=== PATIENT | male | born 1960 | race Caucasian/White ===

== ENCOUNTER 2024-12-24 01:57 | Inpatient (IN) | payer BC ==
[2024-12-24] VITALS (25 sets, daily range): BP systolic 121–165; BP diastolic 58–137
[~2024-12-24] VITALS: Ht 170.2 cm; Wt 75.8 kg
[~2024-12-24 01:57] MED LIST: AMOCLA875 PO; ATOR80 PO; Aspir 8181 MG PO; CHLO10 PO; CLOP75 PO; CRUTCH4 USE; HYDACE5 PO; Hair, Skin & N1 EACH PO; METO25ER PO; NAPR500 PO; OMEP20ER PO; OXYACE5T PO; TRAM50 PO
[2024-12-24] MEDS ORDERED: Heparin Sodium 5000 Units/ML 1ML MDV IV ONE (02:10)
[2024-12-24] MEDS ORDERED: Ondansetron HCl 2 MG / ML 2ML Vial IV ONE (02:10)
[2024-12-24] MEDS ORDERED: Aspirin 325 MG Tab PO ONE (02:10)
[2024-12-24] MEDS ORDERED: NS 1,000 ML IV SCH (02:10)
[2024-12-24] MEDS ORDERED: Nitroglycerin/D5W 250 ML IV SCH (02:15)
[2024-12-24] MEDS ORDERED: FentaNYL Citrate 50 MCG/ML 2 ML Injection IV PRN (02:20)
[2024-12-24 02:31] LABS: BASOPHILS ABSOLUTE AUTO 0.05 K/mm3 (0.00-0.23); BASOPHILS PERCENT AUTO 1 % (0-2); EOSINOPHILS PERCENT AUTO 5 % (0-6); Hematocrit 47.2 % (37.0-53.0); Hemoglobin 16.7 g/dL (13.5-17.5); IMMATURE GRAN ABSOLUTE AUTO 0.02 K/mm3 (0.00-0.10); IMMATURE GRAN PERCENT AUTO 0 % (0-1); LYMPHOCYTES PERCENT AUTO 42 % (21-46); MONOCYTES ABSOLUTE AUTO 0.38 K/mm3 (0.16-1.47); MONOCYTES PERCENT AUTO 6 % (4-13); Mean Corpuscular HGB 31.5 pg (26.0-34.0); Mean Corpuscular HGB Conc 35.4 g/dL (31.5-36.5); Mean Corpuscular Volume 89 fL (80-100); Mean Platelet Volume 10.4 fL (9.1-12.4); NEUTROPHILS ABSOLUTE AUTO 2.66 K/mm3 (1.96-9.15); NEUTROPHILS PERCENT AUTO 45 % (41-73); Platelet Count 181 K/mm3 (150-400); RDW Coefficient Variation 13.2 % (11.7-14.2); RDW Standard Deviation 42.9 fL (35.1-46.3); Red Blood Cell Count 5.31 M/mm3 (4.30-5.90); White Blood Cell Count 5.91 K/mm3 (4.00-11.30)
[2024-12-24] MEDS ORDERED: Verapamil HCL 2.5 MG/ML 2ML Injection ONE (02:34)
[2024-12-24] MEDS ORDERED: Heparin Sodium 1000 Units/ML 10ML MDV ONE (02:34)
[2024-12-24] MEDS ORDERED: NS 250 ML IV ONE (02:35)
[2024-12-24] MEDS ORDERED: NS 1,000 ML IV ONE ×2 (02:35→02:40)
[2024-12-24] MEDS ORDERED: Nitroglycerin 2 MG/20 ML BTL ONE (02:35)
[2024-12-24] MEDS ORDERED: FentaNYL Citrate 50 MCG/ML 2 ML Injection ONE (02:40)
[2024-12-24] MEDS ORDERED: Midazolam HCl 1MG / ML 2ML Vial ONE (02:40)
[2024-12-24] MEDS ORDERED: Atropine Sulfate 0.1 MG/ML 10ML SYR ONE (02:41)
[2024-12-24] MEDS ORDERED: Phenylephrine HCl 100 MCG/ML-NS 10MLSYR (1MG/10ML) ONE (02:41)
[2024-12-24] MEDS ORDERED: NS 0 ML IV ONE (02:43)
[2024-12-24] MEDS ORDERED: Amiodarone HCl 50 MG / ML 3 ML Amp ONE (02:43)
[2024-12-24 02:48] LABS: Anti-Xa UFH, PHA Monitoring <0.10 IU/mL; International Normalized Ratio 0.97; Prothrombin Time Results 10.4 Sec (9.7-11.5)
[2024-12-24] MEDS ORDERED: Dose Adjust by Pharmacy XX STA (02:48)
[2024-12-24] MEDS ORDERED: Heparin Sodium,Porcine/0.5 NS 500 ML IV SCH (02:50)
[2024-12-24 02:54] LABS: Magnesium, Blood 1.8 mg/dL (1.6-2.4)
[2024-12-24 02:56] LABS: Albumin, Blood 4.1 g/dL (3.4-5.0); Alk Phos 91 U/L (50-136); Anion Gap 13 mmol/L (3-11); Aspartate Aminotrans (AST/SGOT 34 U/L (12-37); Bilirubin, Total 0.4 mg/dL (0.1-1.0); Blood Urea Nitrogen 9 mg/dL (8-24); Bun/Creatinine Ratio 11.4 (12.0-20.0); CO2, Blood 23 mmol/L (21-32); Calcium, Blood 9.2 mg/dL (8.5-10.1); Chloride, Blood 105 mmol/L (98-108); Creatinine, Blood 0.79 mg/dL (0.60-1.20); Glomerular Filtration Rate 100 (60-); Glucose, Blood 140 mg/dL (70-99); Potassium, Blood 3.5 mmol/L (3.5-5.5); Sodium, Blood 137 mmol/L (136-145); Total Protein, Blood 8.1 g/dL (6.4-8.2)
[2024-12-24] MEDS ORDERED: Tirofiban HCL Monohydrate 3.75 MG/15 ML Vial ONE (02:58)
[2024-12-24] MEDS ORDERED: Clopidogrel Bisulfate 300 MG TABLET ONE (03:18)
[2024-12-24] MEDS ORDERED: Ondansetron HCl 2 MG / ML 2ML Vial IV PRN (03:55)
[2024-12-24 04:02] LABS: Triglycerides 1034 mg/dL (30-160)
[2024-12-24 04:04] LABS: Cholesterol 324 mg/dL (50-200)
[2024-12-24 04:05] LABS: HDL Cholesterol 70 mg/dL (>39)
[2024-12-24 04:06] LABS: CHOL/HDL RATIO 4.6; Low Density Lipoprotein Chol 212 mg/dL (0-110)
[2024-12-24 04:09] LABS: Alanine Aminotransfer (ALT/SGP 44 U/L (12-78); Very Low Density Lipoprot Chol 216 mg/dL (6-32)
[2024-12-24 04:25] LABS: BASOPHILS ABSOLUTE AUTO 0.04 K/mm3 (0.00-0.23); BASOPHILS PERCENT AUTO 1 % (0-2); EOSINOPHILS ABSOLUTE AUTO 0.22 K/mm3 (0.00-0.68); EOSINOPHILS PERCENT AUTO 3 % (0-6); Hematocrit 41.4 % (37.0-53.0); Hemoglobin 14.6 g/dL (13.5-17.5); IMMATURE GRAN ABSOLUTE AUTO 0.04 K/mm3 (0.00-0.10); IMMATURE GRAN PERCENT AUTO 1 % (0-1); LYMPHOCYTES ABSOLUTE AUTO 1.15 K/mm3 (0.84-5.20); LYMPHOCYTES PERCENT AUTO 15 % (21-46); MONOCYTES ABSOLUTE AUTO 0.34 K/mm3 (0.16-1.47); MONOCYTES PERCENT AUTO 5 % (4-13); Mean Corpuscular HGB 31.8 pg (26.0-34.0); Mean Corpuscular HGB Conc 35.3 g/dL (31.5-36.5); Mean Corpuscular Volume 90 fL (80-100); Mean Platelet Volume 10.7 fL (9.1-12.4); NEUTROPHILS ABSOLUTE AUTO 5.79 K/mm3 (1.96-9.15); NEUTROPHILS PERCENT AUTO 76 % (41-73); Platelet Count 147 K/mm3 (150-400); RDW Coefficient Variation 13.2 % (11.7-14.2); RDW Standard Deviation 43.2 fL (35.1-46.3); Red Blood Cell Count 4.59 M/mm3 (4.30-5.90); White Blood Cell Count 7.58 K/mm3 (4.00-11.30)
[2024-12-24 04:55] LABS: Albumin, Blood 3.8 g/dL (3.4-5.0); Albumin/Globulin Ratio 1.2 (0.8-1.8); Bilirubin, Total 0.4 mg/dL (0.1-1.0); Bun/Creatinine Ratio 13.7 (12.0-20.0); Calcium, Blood 9.1 mg/dL (8.5-10.1); Creatinine, Blood 0.66 mg/dL (0.60-1.20); Globulin, Blood 3.3 g/dL (2.2-4.0); Potassium, Blood 3.5 mmol/L (3.5-5.5); Total Protein, Blood 7.1 g/dL (6.4-8.2)
[2024-12-24] MEDS ORDERED: Amiodarone HCl 50 MG / ML 3 ML Amp IV ONE (04:56)
--- NOTE | 2024-12-24 05:21 | NUR ---
PATIENT ARRIVAL TO ICU: PATIENT ARRIVED TO ICU VIA BED, BEING BROUGHT IN BY THE CUT OFF WORKER TEAM. REPORT RECIEVED AT BEDSIDE FROM JYOTI CUNHA. PATIENT WAS AT HOME WHEN HE STARTED EXPERIENCING SUBSTERNAL CP WITHOUT RADIATION AND SOME NAUSEA. EMS ARRIVED AND ASSESSED THE PATIENT. PATIENT DID NOT GO WITH EMS, HE WAS DRIVEN TO THE ED BY HIS IN THEIR PERSONAL VEHICLE. ONCE IN THE ED, IT WAS DETERMINED THAT THE PATIENT WAS HAVING A STEMI. PATIENT HAD A WITNESSED CARDIAC EVENT (TORSADES) AND REQUIRED DEFIB X3. SENT TO THE CUT OFF WORKER FOR A STENT PRIOR TO BEING ADMITTED TO THE ICU. UPON ARRIVAL TO ICU PATIENT IS ALERT AND ORIENTED X4. NEUROMUSCULARY INTACT X4. NO COMPLAINTS OF CP, SOA OR PAIN. -JVD. ON RA, WITH EQUAL RISE AND FALL OF THE CHEST, CLEAR LS. INTACT COUGH AND GAG. MONITOR SHOWS NSR WITH OCCASSIONAL BIGEMINY PVC'S. BRISK CAP REFILL ASIDE FROM RIGHT HAND DUE TO TR BAND. 2/2 STRONG PULSES. SKIN IS WARM AND DRY. BP IS WNL. NO EDEMA. ABDOMEN IS SNT WITH ACTIVE BT'S. ROUNDED BUT NOT DISTENDED. VOIDS WITHOUT ISSUE. SKIN IS INTACT AND BLANCHABLE. PATIENT IS WEARING A TR BAND ON THE RIGHT WRIST. SEE DOCUMENTATION FOR TR BAND PRESSURE RELEASE. PATIENT HAS TWO PATENT PIV'S. CURRENTLY ON IV AMIO. PATIENT IS NOT IN THE MOOD FOR QUESTIONS AT THIS TIME AND HAS REQUESTED THAT NURSING STAFF ALLOW HIM TO SLEEP AND THEN HE WILL RESUME ANSWERING ADMISSION QUESTIONS IN THE MORNING. WAS AT BEDSIDE WHEN HE WAS ADMITTED BUT LEFT SHORTLY AFTER WITH PATIENT BELONGINGS, LEAVING THE PATIENTS CELL PHONE WITH HIM. NO COMPLICATIONS OR EVENTS TO REPORT.
[2024-12-24] MEDS ORDERED: Potassium Chloride 20 MEQ TabCR PO ONE (08:00)
--- NOTE | 2024-12-24 08:08 | NUR ---
AM NOTE... ASSUMED CARE OF PT AT APPROX 0700. PATIENT A&OX4 AND ABLE TO MAKE NEEDS KNOWN. PATIENT RESTING, BUT WAKES TO VOICES. HR NORMAL SINUS IN THE 60'S-70'S. BP STABLE WITH MAPS >65. NO COMPLAINTS OF CHEST PAIN OR PRESSURE. AMIODARONE INFUSING @ 1MG/MIN. SITE AT R RADIAL WITHOUT BRUISING, BLEEDING OR HEMATOMA. O2 SATS >95% ON RA. L/S CLEAR THROUGHOUT. PT USING URINAL IND TO VOID.
[2024-12-24] MEDS ORDERED: Aspirin 81 MG Chew PO SCH (09:00)
[2024-12-24] MEDS ORDERED: buPROPion HCL 150 MG TAB.SR.12H PO SCH (09:00)
[2024-12-24] MEDS ORDERED: Clopidogrel Bisulfate 75 MG Tab PO SCH (09:00)
[2024-12-24] MEDS ORDERED: Losartan Potassium 25 MG Tab PO SCH (09:00)
[2024-12-24] MEDS ORDERED: Varenicline Tartrate 1 MG Tablet PO SCH ×2 (09:00)
[2024-12-24] MEDS ORDERED: Metoprolol Tartrate 25 MG Tab PO SCH (09:00)
--- NOTE | 2024-12-24 13:23 | NUR ---
PT UPDATE.... PT'S CAME TO THE DESK SAYING THE PT WAS HAVING INCREASED CHEST PRESSURE/HEAVINESS THAT HAS INCREASED OVER THE PAST "HOUR OR SO" PER THE PT THE PRESSURE/HEAVINESS IS CURRENTLY A 4/10. THE PROVIDER WAS CALLED, ORDERS FOR AN EKG. NO MAJOR CHANGES NOTED ON THE EKG. NO CHANGES NOTED ON TELE. OTHER VS STABLE.
[2024-12-24] MEDS ORDERED: BREZTRI AEROS10.7 GM INH (13:36)
[2024-12-24] MEDS ORDERED: Mometasone/Formoterol MDI 200/5 mcg 13 GM INH SCH (14:10)
[2024-12-24] MEDS ORDERED: Ipratropium Bromide INH 0.02% 0.5 mg/2.5ML Vial INH SCH ×2 (14:10→14:45)
[2024-12-24] MEDS ORDERED: ChlordiazePOXIDE 25 MG Cap PO PRN (15:20)
[2024-12-24] MEDS ORDERED: Folic Acid 1 MG TAB PO SCH (16:00)
[2024-12-24] MEDS ORDERED: Thiamine HCl 100 MG Tab PO SCH (16:00)
--- NOTE | 2024-12-24 17:24 | NUR ---
SHIFT SUMMARY... PATIENT A&OX4 AND ABLE TO MAKE NEEDS KNOWN. HR NORMAL SINUS IN THE 60'S-70'S. BP STABLE WITH MAPS >65. R RADIAL SITE STABLE WITH ARM BOARD IN PLACE. NO COMPLAINTS OF CHEST PAIN. PATIENT STATES HE HAS SOME CHEST PRESSURE BUT NOTHING NEW, PROVIDER AWARE. SATS >95% ON RA. L/S CLEAR THROUGHOUT. PATIENT IND TO USE TOILET. BM X2 THIS SHIFT. PIV TO THE LEFT UPPER ARM AND RIGHT AC SALINE LOCKED. AT BEDSIDE UPDATED ON PLAN OF CARE.
--- NOTE | 2024-12-24 20:00 | NUR ---
ASSESSMENT/ASSUMED CARE PT RESTING QUIETLY WITH EAR PLUGS IN. AWAKENS EASILY TO TOUCH. A&O X4. MOVING AND TURNING SELF IN BED. REPORTS CHEST PRESSURE TO MID CHEST. STATES,"IT IS BETTER THAN WHEN DR SIMONS CAME INTO SEE ME. HE SAID IT WAS FROM ALL THE WORK AND STRETCHING HE DID TO MY HEART". EXPLAINED IF THE PAIN/PRESSURE CHANGED OR GOES UP INTO HIS JAW OR ARM TO CALL ME FLIP. LUNGS CLEAR BUT DECREASED IN THE BASES. PLACED ON O2 AT 4 LITER VIA NC DUE TO SPO2 DOWN TO 85% ON ROOMAIR WHILE SLEEPING. SPO2 UP TO 98% WITH O2 AT 4 LITERS. HEART RATE REGULAR IN THE 70-80'S. BP STABLE. PT MED WITH HS MEDS PER EMAR. NO EDEMA NOTED. BT+ ABD SOFT AND NONTENDER. DENIES N/V. RIGHT WRIST TR SITE WITH BRUISING. NO BLEEDING OR HEMATOMA NOTED. ARM BOARD ON. EXPLAINED TO PT TO NOT USE ARM AND TO KEEP ARM BOARD ON. IV TO LEFT UPPER ARM SALINE LOCKED SITE CLEAR, ABLE TO DRAW BLOOD AND FLUSH WITHOUT DIFFICULTY. IV RIGHT AC SALINE LOCKED. SITE CLEAR. ABLE TO FLUSH WITHOUT DIFFICULTY. PT UP TO BATHROOM TO VOID THAN BACK TO BED.
[2024-12-24] MEDS ORDERED: Atorvastatin 40 MG Tab PO SCH (21:00)
--- NOTE | 2024-12-25 01:50 | NUR ---
PT SLEEPING. SPO2 97-98% ON 4 LITERS O2 VIA NC. DECREASED O2 TO 2 LITERS VIA NC.
[2024-12-25 03:02] VITALS: BP 129/83
[2024-12-25 03:32] LABS: BASOPHILS ABSOLUTE AUTO 0.05 K/mm3 (0.00-0.23); BASOPHILS PERCENT AUTO 0 % (0-2); EOSINOPHILS ABSOLUTE AUTO 0.17 K/mm3 (0.00-0.68); EOSINOPHILS PERCENT AUTO 2 % (0-6); Hematocrit 41.3 % (37.0-53.0); Hemoglobin 14.1 g/dL (13.5-17.5); IMMATURE GRAN ABSOLUTE AUTO 0.08 K/mm3 (0.00-0.10); IMMATURE GRAN PERCENT AUTO 1 % (0-1); LYMPHOCYTES ABSOLUTE AUTO 1.61 K/mm3 (0.84-5.20); LYMPHOCYTES PERCENT AUTO 14 % (21-46); MONOCYTES ABSOLUTE AUTO 0.63 K/mm3 (0.16-1.47); MONOCYTES PERCENT AUTO 6 % (4-13); Mean Corpuscular HGB 30.9 pg (26.0-34.0); Mean Corpuscular HGB Conc 34.1 g/dL (31.5-36.5); Mean Corpuscular Volume 91 fL (80-100); Mean Platelet Volume 10.7 fL (9.1-12.4); NEUTROPHILS ABSOLUTE AUTO 8.71 K/mm3 (1.96-9.15); NEUTROPHILS PERCENT AUTO 78 % (41-73); Platelet Count 156 K/mm3 (150-400); RDW Coefficient Variation 13.1 % (11.7-14.2); RDW Standard Deviation 43.5 fL (35.1-46.3); Red Blood Cell Count 4.56 M/mm3 (4.30-5.90); White Blood Cell Count 11.25 K/mm3 (4.00-11.30)
[2024-12-25 03:56] LABS: Albumin, Blood 3.7 g/dL (3.4-5.0); Albumin/Globulin Ratio 1.2 (0.8-1.8); Bilirubin, Total 0.9 mg/dL (0.1-1.0); Bun/Creatinine Ratio 9.4 (12.0-20.0); Calcium, Blood 8.9 mg/dL (8.5-10.1); Creatinine, Blood 0.74 mg/dL (0.60-1.20); Globulin, Blood 3.2 g/dL (2.2-4.0); Potassium, Blood 3.8 mmol/L (3.5-5.5); Total Protein, Blood 6.9 g/dL (6.4-8.2)
[2024-12-25] MEDS ORDERED: Enoxaparin 40 MG/0.4 ML SYR SC SCH (05:00)
--- NOTE | 2024-12-25 05:50 | NUR ---
SHIFT SUMMARY PT RESTING QUIETLY. VSS. RIGHT WRIST TR SITE STABLE. DENIES CHEST PAIN OR PRESSURE AT THIS TIME. POSSIBLE DISCHARGE TO HOME TODAY. REPORT TO ON COMING NURSE
[2024-12-25 07:47] VITALS: BP 130/74
[2024-12-25] MEDS ORDERED: BUPR150ER PO (09:50)
[2024-12-25] MEDS ORDERED: LOSA25 PO (09:50)
[2024-12-25] MEDS ORDERED: PANT20 PO (09:51)
[2024-12-25] MEDS ORDERED: Chantix1 MG PO (09:52)
--- NOTE | 2024-12-25 10:45 | NUR ---
PT DISCHARGED AT 1025 TO HIS HOME. PICKED HIM UP IN A PRIVATED VEHICLE. NEURO: ALERT AND ORIENTED X4 TODAY. ABLE TO MAKE HIS OWN NEEDS KNOWN. CARDIAC: SBP 130-140S, HR 80-90S. SR. DENIED ANY CHEST PAIN OR PRESSURE TR BAND SITE C/D/I, SOME ECCYMOSIS AROUND ACCESS SITE BUT DENIED ANY CHANGES IN SENSATION OR PAIN. PULM: LUNGS CLEAR TO AUSCULATION, NO COUGH OR SOB. GI: ABDO SOFT/NON TENDER, PASSING FLATUS WITH NORMOACTIVE BOWEL TONES. : URINATING PER HIS NORMAL, UP TO TOLIET INDEPENDENTLY INDEPENDENT IN ALL ADLS. EXTENSIVE EDUCATION PROVIDED WITH PRINTED INSTRUCTIONS. PT ASKING QUESTIONS AND ENGAGED.
[2024-12-25] MEDS ORDERED: Ipratropium Bromide INH 0.02% 0.5 mg/2.5ML Vial INH SCH (14:10)
== END 2024-12-25 10:25 | disposition home or self-care (01) | DRG 321 ==
LOC: ER 01:57 → ICUE 02:35 → ERHOLD 02:35 → ICUE 03:35
PROVIDERS: Emergency Medicine; Internal Medicine; ADMIT Internal Medicine
PROC: 027034Z Dilation of Coronary Artery, One Artery with Drug-eluting Intraluminal Device, Percutaneous Approach (ICD-10-PCS; principal; 2024-12-24)
PROC: 5A2204Z Restoration of Cardiac Rhythm, Single (ICD-10-PCS; 2024-12-24)
PROC: B2111ZZ Fluoroscopy of Multiple Coronary Arteries using Low Osmolar Contrast (ICD-10-PCS; 2024-12-24)
DX: I21.19 ST elevation (STEMI) myocardial infarction involving other coronary artery of inferior wall (principal); I49.01 Ventricular fibrillation; I10 Essential (primary) hypertension; E78.5 Hyperlipidemia, unspecified; F10.20 Alcohol dependence, uncomplicated; F17.210 Nicotine dependence, cigarettes, uncomplicated; Z88.8 Allergy status to other drugs, medicaments and biological substances; Z79.899 Other long term (current) drug therapy; I25.2 Old myocardial infarction; Z79.82 Long term (current) use of aspirin
CPT/HCPCS: 36415; 71045; 76937; 80053; 80061; 83605; 83735; 83880; 84484; 85025; 85347; 85520; 85610; 85730; 86850; 86900; 86901; 92941; 93005; 93010; 93454; 94640; 94664; 94762; 96374; 96375; 99152; 99153; 99285-25; A9270; C1725; C1769; C1874; C1887; C1894; C8929; C9600; G0378; J0282; J0461; J1644; J1650; J2250; J2371; J2405; J3010; J3246; J7030; J7050; J7060; Q9957; Q9967

== ENCOUNTER 2025-07-01 20:58 | Inpatient (IN) | payer BC, OTHER ==
[~2025-07-01] VITALS: Ht 172.7 cm; Wt 80.5 kg
[~2025-07-01 20:58] MED LIST changes: +BREZTRI AEROS10.7 GM INH; +BUPR150ER PO; +Chantix1 MG PO; +LOSA25 PO; +PANT20 PO
[2025-07-01] MEDS ORDERED: Amiodarone HCl 450 MG in NS 250 ML IV SCH (21:05)
[2025-07-01 21:17] LABS: pH Blood Venous 6.90 (7.34-7.37)
[2025-07-01 21:28] LABS: Hematocrit 43.4 % (37.0-53.0); Hemoglobin 14.0 g/dL (13.5-17.5); Mean Corpuscular HGB Conc 32.3 g/dL (31.5-36.5); Mean Corpuscular Volume 94 fL (80-100); NRBC ABSOLUTE 0.00 K/mm3 (0.00-0.02); NRBC Auto 0.0 /100 WBC (0.0-0.2); Platelet Count 177 K/mm3 (150-400); RDW Coefficient Variation 13.5 % (11.7-14.2); RDW Standard Deviation 46.3 fL (35.1-46.3)
[2025-07-01 21:47] LABS: Thyroid Stimulating Hormone 7.59 uIU/mL (0.360-4.800)
[2025-07-01 21:53] LABS: Alanine Aminotransfer (ALT/SGP 209.0 U/L (12-78); Albumin, Blood 3.4 g/dL (3.4-5.0); Albumin/Globulin Ratio 1.0 (0.8-1.8); Anion Gap 19.0 mmol/L (3-11); Aspartate Aminotrans (AST/SGOT 219.0 U/L (12-37); Bilirubin, Total 0.4 mg/dL (0.1-1.0); Blood Urea Nitrogen 14.0 mg/dL (8-24); CO2, Blood 19.0 mmol/L (21-32); Calcium, Blood 8.2 mg/dL (8.5-10.1); Chloride, Blood 101.0 mmol/L (98-108); Creatinine, Blood 1.05 mg/dL (0.60-1.20); Globulin, Blood 3.5 g/dL (2.2-4.0); Glucose, Blood 393.0 mg/dL (70-99); Magnesium, Blood 2.7 mg/dL (1.6-2.4); Phosphorus, Blood 8.2 mg/dL (2.5-4.9); Potassium, Blood 4.2 mmol/L (3.5-5.5); Sodium, Blood 135.0 mmol/L (136-145); Total Protein, Blood 6.9 g/dL (6.4-8.2)
[2025-07-01 21:55] LABS: BAND PERCENT MAN 10 % (0-8); BASOPHILS ABSOLUTE MAN 0.00 K/mm3 (0.00-0.23); BASOPHILS PERCENT MAN 0 % (0-2); EOSINOPHILS ABSOLUTE MAN 0.39 K/mm3 (0.00-0.68); EOSINOPHILS PERCENT MAN 2 % (0-6); LYMPHOCYTES ABSOLUTE MAN 10.98 K/mm3 (0.84-5.20); LYMPHOCYTES PERCENT MAN 55 % (21-46); MONOCYTES ABSOLUTE MAN 0.39 K/mm3 (0.16-1.47); MONOCYTES PERCENT MAN 2 % (4-13); MYELOCYTE ABSOLUTE MAN 0.19 K/mm3 (0.00-0.00); MYELOCYTE PERCENT MAN 1 % (0-0); NEUTROPHILS ABSOLUTE MAN 7.99 K/mm3 (1.96-9.15); SEG NEUTROPHILS PERCENT MAN 30 % (41-73)
[2025-07-01] MEDS ORDERED: NS 1,000 ML IV ONE (22:15)
[2025-07-01 22:26] LABS: Source, Urine Clean Catch
[2025-07-01 22:33] LABS: Bilirubin, Urine Neg (Neg); Glucose Qualitative, Urine 3+ (Neg); Ketones, Urine Neg (Neg); Leukocyte Esterase, Urine Neg (Neg); Protein, Urine 4+ (Neg); Specific Gravity, Urine 1.015 (1.003-1.022); Urobilinogen, Urine NORM (Normal)
[2025-07-01 22:34] LABS: Color, Urine Pale Yellow (P-Yellow)
[2025-07-01 22:40] LABS: Influenza A, PCR NEGATIVE (NEGATIVE); Influenza B, PCR NEGATIVE (NEGATIVE); Resp Syncytial Virus, PCR NEGATIVE (NEGATIVE); SARS-Cov-2 (COVID-19) PCR, MMC NEGATIVE (NEGATIVE)
[2025-07-01 22:41] LABS: Red Blood Cells, Urine 25-50 /hpf (0-2)
[2025-07-01] MEDS ORDERED: Dose Adjust by Pharmacy XX STA (22:47)
[2025-07-01] MEDS ORDERED: Heparin Sodium,Porcine/0.5 NS 500 ML IV SCH (22:50)
[2025-07-01 23:07] LABS: Anti-Xa UFH, PHA Monitoring <0.10 IU/mL; Prothrombin Time Results 10.9 Sec (9.7-11.5)
[2025-07-01] MEDS ORDERED: CefTRIAXone Sodium 2,000 MG in NS 100 ML IV ONE (23:10)
[2025-07-01 23:15] LABS: pH Blood Arterial 7.14 (7.35-7.45)
[2025-07-01] MEDS ORDERED: FLU VACC TS2025-26(6MOS UP)/PF 45 MCG/0.5 ML SYRINGE IM SCH (23:30)
[2025-07-01 23:45] VITALS: BP 152/100
[2025-07-02] VITALS (87 sets, daily range): BP systolic 74–157; BP diastolic 44–110
[2025-07-02] MEDS ORDERED: Midazolam HCl 1MG / ML 2ML Vial IV SCH
[2025-07-02] MEDS ORDERED: Hydrogen Peroxide 1.5 % Solution PO SCH
[2025-07-02 01:47] LABS: pH Blood Venous 7.20 (7.34-7.37)
[2025-07-02 01:51] LABS: BASOPHILS ABSOLUTE AUTO 0.11 K/mm3 (0.00-0.23); BASOPHILS PERCENT AUTO 1 % (0-2); EOSINOPHILS ABSOLUTE AUTO 0.10 K/mm3 (0.00-0.68); EOSINOPHILS PERCENT AUTO 1 % (0-6); Hematocrit 48.7 % (37.0-53.0); Hemoglobin 16.3 g/dL (13.5-17.5); IMMATURE GRAN ABSOLUTE AUTO 0.31 K/mm3 (0.00-0.10); IMMATURE GRAN PERCENT AUTO 2 % (0-1); LYMPHOCYTES ABSOLUTE AUTO 1.69 K/mm3 (0.84-5.20); LYMPHOCYTES PERCENT AUTO 9 % (21-46); MONOCYTES ABSOLUTE AUTO 1.08 K/mm3 (0.16-1.47); MONOCYTES PERCENT AUTO 6 % (4-13); Mean Corpuscular HGB Conc 33.5 g/dL (31.5-36.5); Mean Corpuscular Volume 90 fL (80-100); NEUTROPHILS ABSOLUTE AUTO 14.77 K/mm3 (1.96-9.15); NEUTROPHILS PERCENT AUTO 82 % (41-73); NRBC ABSOLUTE 0.00 K/mm3 (0.00-0.02); NRBC Auto 0.0 /100 WBC (0.0-0.2); Platelet Count 217 K/mm3 (150-400); RDW Coefficient Variation 13.6 % (11.7-14.2); RDW Standard Deviation 45.0 fL (35.1-46.3)
[2025-07-02] MEDS ORDERED: Midazolam HCL 50 MG in NS 40 ML IV PRN (01:55)
[2025-07-02 02:15] LABS: Magnesium, Blood 2.3 mg/dL (1.6-2.4)
[2025-07-02 02:19] LABS: Alanine Aminotransfer (ALT/SGP 225.0 U/L (12-78); Albumin, Blood 3.6 g/dL (3.4-5.0); Albumin/Globulin Ratio 1.1 (0.8-1.8); Anion Gap 12.0 mmol/L (3-11); Aspartate Aminotrans (AST/SGOT 294.0 U/L (12-37); Bilirubin, Total 0.2 mg/dL (0.1-1.0); Blood Urea Nitrogen 20.0 mg/dL (8-24); CO2, Blood 22.0 mmol/L (21-32); Calcium, Blood 7.6 mg/dL (8.5-10.1); Chloride, Blood 107.0 mmol/L (98-108); Creatinine, Blood 1.45 mg/dL (0.60-1.20); Globulin, Blood 3.4 g/dL (2.2-4.0); Glucose, Blood 135.0 mg/dL (70-99); Sodium, Blood 135.0 mmol/L (136-145); Total Protein, Blood 7.0 g/dL (6.4-8.2)
[2025-07-02 02:20] LABS: Potassium, Blood 6.2 mmol/L (3.5-5.5)
[2025-07-02] MEDS ORDERED: FentaNYL Citrate 50 MCG/ML 2 ML Injection IV PRN ×2 (02:25→09:30)
[2025-07-02] MEDS ORDERED: Pantoprazole Sodium 40 MG Injection IV SCH (06:00)
[2025-07-02] MEDS ORDERED: Insulin Human Lispro 100 Units/ML 3ML Syringe SC SCH (06:00)
[2025-07-02 06:25] LABS: Hematocrit 42.8 % (37.0-53.0); Hemoglobin 14.4 g/dL (13.5-17.5); Platelet Count 182 K/mm3 (150-400)
[2025-07-02] MEDS ORDERED: Cetylpyridinium Chloride 1 EA MISC MT SCH ×2 (08:00→11:05)
--- NOTE | 2025-07-02 08:00 | NUR ---
ASSUMED CARE. RECEIVED REPORT FROM NIGHT RN. PT TOLERATING VENTILATOR. HEPARIN AT 15 UNITS. AMIO DRIP AT .5. LEVO AT 10 MICS.VERSED AT 6. PT DOES NOT FOLLOW ANY COMMANDS. THICK DAHL SPUTUM WHEN SUCTIONING.ETT [address] INCONTENT OF STOOL. FAMIL;Y AT BEDSIDE.
[2025-07-02 08:30] LABS: Alanine Aminotransfer (ALT/SGP 169.0 U/L (12-78); Albumin, Blood 3.0 g/dL (3.4-5.0); Albumin/Globulin Ratio 1.0 (0.8-1.8); Anion Gap 9.0 mmol/L (3-11); Aspartate Aminotrans (AST/SGOT 177.0 U/L (12-37); Bilirubin, Total 0.4 mg/dL (0.1-1.0); Blood Urea Nitrogen 22.0 mg/dL (8-24); CO2, Blood 22.0 mmol/L (21-32); Calcium, Blood 7.3 mg/dL (8.5-10.1); Chloride, Blood 113.0 mmol/L (98-108); Creatinine, Blood 1.32 mg/dL (0.60-1.20); Globulin, Blood 2.9 g/dL (2.2-4.0); Glucose, Blood 161.0 mg/dL (70-99); Potassium, Blood 4.3 mmol/L (3.5-5.5); Sodium, Blood 140.0 mmol/L (136-145); Total Protein, Blood 5.9 g/dL (6.4-8.2)
[2025-07-02] MEDS ORDERED: LORazepam 2 MG/ML 1ML Injection IV PRN (09:30)
[2025-07-02] MEDS ORDERED: Verapamil HCL 2.5 MG/ML 2ML Injection ONE (09:47)
[2025-07-02] MEDS ORDERED: Nitroglycerin 2 MG/20 ML BTL ONE (09:48)
[2025-07-02] MEDS ORDERED: NS 250 ML IV ONE (09:48)
[2025-07-02] MEDS ORDERED: NS 1,000 ML IV ONE (09:48)
[2025-07-02] MEDS ORDERED: Heparin Sodium 1000 Units/ML 10ML MDV ONE (09:48)
[2025-07-02 10:18] LABS: U Amphetamine Screen Not Detected; U Barbiturate Screen Not Detected; U Benzodiazapine Screen Not Detected; U Buprenorphine Screen Not Detected; U Cannabinoids Screen DETECTED; U Cocaine Screen Not Detected; U Methadone Screen Not Detected; U Methamphetamine Screen Not Detected; U Opiates Screen Not Detected; U Oxycodone Screen DETECTED; U Phencyclidine Screen Not Detected
[2025-07-02] MEDS ORDERED: Albuterol 2.5 MG/3 ML VIAL INH PRN (11:05)
[2025-07-02] MEDS ORDERED: Hydrogen Peroxide 1.5 % Solution MT SCH (12:00)
[2025-07-02] MEDS ORDERED: Dose Adjust by Pharmacy XX STA (12:59)
--- NOTE | 2025-07-02 13:27 | NUR ---
ECHO COMPLETED. LEVO WEANED OFF. PT TO EMPLOYMENT OFFICE CLERK VIA BED MONITORED WITH R.T. AND RNS.
[2025-07-02] MEDS ORDERED: NS 0 ML IV ONE (13:43)
[2025-07-02] MEDS ORDERED: FentaNYL Citrate 50 MCG/ML 2 ML Injection ONE ×2 (13:48→14:48)
[2025-07-02] MEDS ORDERED: Phenylephrine HCl 100 MCG/ML-NS 10MLSYR (1MG/10ML) ONE (14:01)
[2025-07-02] MEDS ORDERED: NS 500 ML IV ONE (14:25)
--- NOTE | 2025-07-02 15:00 | NUR ---
PT RETURNED FROM IT TECHNICAL ARCHITECT. TR BAND ON RT RADIAL. 0 HEMATOMA OR BLEEDING. VSS.LEVOFED AND HEPARIN ARE OFF.FAMILY AT BEDSIDE.
--- NOTE | 2025-07-02 17:48 | NUR ---
END OF SHIFT SUMMARY. PT HAS HAD ECHO AND HAS BEEN TO THE FRESH WORK WRAPPER LAYER AND BACK. HEART AND EF REMAINING AT 40% WHICH IS WHERE IT WAS 3 MONTHS AGO. DISCUSSED WITH FAMILY ABOUT HAVING A DFIBULATOR PLACED AND THAT WOULD REQUIRE A TRANSER TO ANOTHER HOSPITAL. LEVOFED TITRATED OFF BY 1200. HEPARIN STOPPED IN FRESH WORK WRAPPER LAYER.AMIO CONTINUED AT .5. VERSED WEANED DOWN AND STOPPED AT 1745. PROPOFOL STARTED AND TITRATED UP TO 20 MICS FOR POSSIBLE EXTUBATION TOMORROW.TB ON RT RADIAL AND 4 CC REMOVED SO FAR. NO HEMATOMA OR BLEEDING. CAPILLARY REFILL >3. RESTRAINTS ON D/T PT NOT ABLE TO FOLLOW ANY COMMANDS. URINE SENT FOR DRUG AND ALCOHOL SCREEN. SPUTUM SENT FOR CULTURE. FAMILY AT BEDSIDE.
[2025-07-03] VITALS (69 sets, daily range): BP systolic 97–196; BP diastolic 60–121
[2025-07-03 03:42] LABS: pH Blood Venous 7.40 (7.34-7.37)
[2025-07-03 03:48] LABS: BASOPHILS ABSOLUTE AUTO 0.03 K/mm3 (0.00-0.23); BASOPHILS PERCENT AUTO 0 % (0-2); EOSINOPHILS ABSOLUTE AUTO 0.11 K/mm3 (0.00-0.68); EOSINOPHILS PERCENT AUTO 1 % (0-6); Hematocrit 34.6 % (37.0-53.0); Hemoglobin 11.8 g/dL (13.5-17.5); IMMATURE GRAN ABSOLUTE AUTO 0.03 K/mm3 (0.00-0.10); IMMATURE GRAN PERCENT AUTO 0 % (0-1); LYMPHOCYTES ABSOLUTE AUTO 1.14 K/mm3 (0.84-5.20); LYMPHOCYTES PERCENT AUTO 12 % (21-46); MONOCYTES ABSOLUTE AUTO 0.48 K/mm3 (0.16-1.47); MONOCYTES PERCENT AUTO 5 % (4-13); Mean Corpuscular HGB Conc 34.1 g/dL (31.5-36.5); Mean Corpuscular Volume 88 fL (80-100); NEUTROPHILS ABSOLUTE AUTO 7.44 K/mm3 (1.96-9.15); NEUTROPHILS PERCENT AUTO 81 % (41-73); NRBC ABSOLUTE 0.00 K/mm3 (0.00-0.02); NRBC Auto 0.0 /100 WBC (0.0-0.2); Platelet Count 126 K/mm3 (150-400); RDW Coefficient Variation 14.4 % (11.7-14.2); RDW Standard Deviation 46.9 fL (35.1-46.3)
[2025-07-03 04:06] LABS: Magnesium, Blood 2.1 mg/dL (1.6-2.4)
[2025-07-03 04:26] LABS: Alanine Aminotransfer (ALT/SGP 116.0 U/L (12-78); Albumin, Blood 2.6 g/dL (3.4-5.0); Albumin/Globulin Ratio 0.8 (0.8-1.8); Anion Gap 8.0 mmol/L (3-11); Aspartate Aminotrans (AST/SGOT 102.0 U/L (12-37); Bilirubin, Total 0.6 mg/dL (0.1-1.0); Blood Urea Nitrogen 16.0 mg/dL (8-24); CO2, Blood 23.0 mmol/L (21-32); Calcium, Blood 8.0 mg/dL (8.5-10.1); Chloride, Blood 113.0 mmol/L (98-108); Creatinine, Blood 0.98 mg/dL (0.60-1.20); Globulin, Blood 3.1 g/dL (2.2-4.0); Glucose, Blood 118.0 mg/dL (70-99); Potassium, Blood 3.4 mmol/L (3.5-5.5); Sodium, Blood 141.0 mmol/L (136-145); Total Protein, Blood 5.7 g/dL (6.4-8.2)
[2025-07-03 04:30] LABS: Phosphorus, Blood 2.4 mg/dL (2.5-4.9)
--- NOTE | 2025-07-03 06:31 | NUR ---
SHIFT SUMMARY PT CON'T INTUBATED/SEDATED, OCCAS SQUEEZING HAND AND LETTING GO ON COMMAND, BUT MOSTLY THRASHING IN BED, FIGHTING VENT, COUGHING UP LARGE AMTS THICK/DAHL SECRETIONS FROM ETT, REQUIRING MORE FREQ SUCTIONING T/O NIGHT. PROPOFOL TITRATED PER ORDERS WHEN PT STARTED THRASHING, CURRENTLY AT 50 MCG (SEE FLOWSHEET). AMIODARONE GTT CON'T AT 0.5 MG/HR. PRN FENTANYL IVP ALSO GIVEN PER CPOT. VENT SETTINGS PER RT T/O NIGHT (SEE RT CHARTING.) U.O. DECREASING THIS AM. FEBRILE EARLIER IN SHIFT, MAX 99.8, NOW 98.4. WILL UPDATE DAY RN WITH ALL OUTSTANDING ISSUES AND PROBLEMS TO DATE.
--- NOTE | 2025-07-03 12:16 | NUR ---
pt alert and oriented x 3. pt frustrated with rib pain on any movement.
--- NOTE | 2025-07-03 12:41 | NUR ---
ASSUMED CARE. REPORT RECEIVED FROM GUERLINE RAMIREZ. ESTRELLA AT .5. PROPOFOL AT 50 MICS. PT TOLERATING VENT. FIO2 AT 30%. PEEP 8. TV 550, RATE 18. PT RESPONDS TO PAIN AND FOLLOWS COMMANDS IN LEFT HAND AND FEET. NOT RIGHT HAND.
--- NOTE | 2025-07-03 14:38 | NUR ---
PT AWAKE AND AGITATED. PT EXTUBATED BY R.T. PROPOFOL HAD BEEN OFF FOR 30 MINUTES. O2 AT 7 LITERS AND PT COUGHING AND EXPECTORATING LOTS OF DAHL SPUTUM. PT WENT INTO BIGEMINY FOR 2 MINUTES AND CONVERTED TO SR 104.
--- NOTE | 2025-07-03 17:50 | NUR ---
END OF SHIFT. PT EXTUBATED THIS AM. PT ALERT AND ORIENTED. AMIO DRIP D/C AFTER PO AMIO GIVEN. [place] SWALLOW TEST DONE AND PASSED. PT TAKING FLUIDS WELL. HEART HEALTHY DIET STARTED BUT BUT ONLY CONSUMED 10% PLUS ICE CREAM. PT IS MOVING LT HAND WELL AND STANDS WITH ASSIST OF 2 TO AMBULATE TO CHAIR. RT HAND NOTICABLE WEAKER THAN LEFT AND DIFFICULT TO HOLD THINGS IN. RT RADIAL PUNCTURE SITE IS DRY AND WITHOUT HEMATOMA OR BLEEDING.PT AMBULATE TO COMMODE X 2 AND OOB TO CHAIR X 2 HOURS. PT WATCHING FOOTBALL GAME AND YELLING AT SCORE. DECREASED DAHL SECRETIONS SINCE OOB. F/C PATENT.
[2025-07-04] VITALS (15 sets, daily range): BP systolic 141–177; BP diastolic 82–105
[2025-07-04 03:56] LABS: BASOPHILS ABSOLUTE AUTO 0.04 K/mm3 (0.00-0.23); BASOPHILS PERCENT AUTO 1 % (0-2); EOSINOPHILS ABSOLUTE AUTO 0.29 K/mm3 (0.00-0.68); EOSINOPHILS PERCENT AUTO 4 % (0-6); Hematocrit 31.8 % (37.0-53.0); Hemoglobin 11.1 g/dL (13.5-17.5); IMMATURE GRAN ABSOLUTE AUTO 0.04 K/mm3 (0.00-0.10); IMMATURE GRAN PERCENT AUTO 1 % (0-1); LYMPHOCYTES ABSOLUTE AUTO 1.14 K/mm3 (0.84-5.20); LYMPHOCYTES PERCENT AUTO 15 % (21-46); MONOCYTES ABSOLUTE AUTO 0.40 K/mm3 (0.16-1.47); MONOCYTES PERCENT AUTO 5 % (4-13); Mean Corpuscular HGB Conc 34.9 g/dL (31.5-36.5); Mean Corpuscular Volume 87 fL (80-100); NEUTROPHILS ABSOLUTE AUTO 5.48 K/mm3 (1.96-9.15); NEUTROPHILS PERCENT AUTO 74 % (41-73); NRBC ABSOLUTE 0.00 K/mm3 (0.00-0.02); NRBC Auto 0.0 /100 WBC (0.0-0.2); Platelet Count 115 K/mm3 (150-400); RDW Coefficient Variation 13.6 % (11.7-14.2); RDW Standard Deviation 43.2 fL (35.1-46.3)
[2025-07-04 04:15] LABS: Anion Gap 7.0 mmol/L (3-11); Blood Urea Nitrogen 9.0 mg/dL (8-24); CO2, Blood 27.0 mmol/L (21-32); Calcium, Blood 8.3 mg/dL (8.5-10.1); Chloride, Blood 106.0 mmol/L (98-108); Creatinine, Blood 0.85 mg/dL (0.60-1.20); Glucose, Blood 99.0 mg/dL (70-99); Magnesium, Blood 1.9 mg/dL (1.6-2.4); Phosphorus, Blood 2.8 mg/dL (2.5-4.9); Potassium, Blood 3.3 mmol/L (3.5-5.5); Sodium, Blood 137.0 mmol/L (136-145)
--- NOTE | 2025-07-04 05:41 | NUR ---
SHIFT SUMMARY PT A/O X3, FUZZY ON DATE, BUT KNOWS BDAY, FOLLOWS COMMANDS APPROP, ABLE TO MAKE NEEDS KNOWN. C/O SEVERE RIB PAIN, FENTANYL GIVEN PRN. OCCAS. QUITE ANXIOUS, ATIVAN GIVEN PRN WITH POSITIVE RESULT. DENIES DISCOMFORT AT THIS TIME. ABLE TO EAT AN APPLESAUCE AND ICE CREAM CUP, NO C/O N/V. VSS T/O NIGHT, DID NEED O2 NC INCREASED TO 6L WHILE SLEEPING TO KEEP O2 SAT>94%, MOUTH BREATHING NOTED. AFEBRILE. RIGHT IJ CENTRAL LINE D/C'D WITHOUT INCIDENT. SITE BENIGN WITH DRSG INTACT. WILL UPDATE DAY RN WITH ALL OUTSTANDING ISSUES AND PROBLEMS TO DATE.
[2025-07-04] MEDS ORDERED: HYDROcodone 5-APAP 325 TAB PO PRN (09:15)
--- NOTE | 2025-07-04 10:00 | NUR ---
ASSUMED CARE AT 0700 PT SLEEPING AT SHIFT CHANGE. HE IS VERY LETHARGIC THIS AM AND FALLS ASLEEP MID CONVERSATION; HE IS ORIENTED X4; CONT TO HAVE WEAKNED CHILDREN'S MINISTER TO RT HAND SIMILAR TO PREVIOUS DAY; PT ALSO STATING THAT HE IS HAVING BLURRY VISION. CALL MADE TO DR ERICKSON WITH CONCERNS AND NEW ORDERS FOR VBG PROVIDED. SPO2> 98% ON 2L NC. AFEBRILE. HR 70-80'S. SBP 140-150'S; NO C/O CHEST PAIN OR PRESSURE, NO DYSPNEA. PT C/O RIB PAIN OCCATIONALLY. MOREL IN PLACE AND DRAINING TO GRAVITY. PT DECLINING FOOD AND FALLING BACK ASLEEP. AT BEDSIDE; SEE SHIFT ASSESSMENT FOR FULL ASSESSMENT.
[2025-07-04 10:34] LABS: pH Blood Venous 7.38 (7.34-7.37)
--- NOTE | 2025-07-04 12:52 | NUR ---
UPDATE PT NOT C/O BLURRY VISION ANY MORE. HE IS ALSO MORE AWAKE AND INTERACTING WITH STAFF; CURRENTLY USING HIS CELL PHONE. CIWA SCORE 2. PO PAIN MEDICATION NOW GIVEN. PLAN TO TRANSFER TO MEDICAL FLOOR.
--- NOTE | 2025-07-04 15:23 | NUR ---
LIFE VEST FITTING SPOKE WITH JAMES WHO FITS PATIENTS FOR LIFE VESTS. PLAN TO RE EVALUATE TOMORROW SINCE PATIENT UNABLE TO FOLLOW DIRECTIONS AT THIS TIME AND CONFUSED. UPDATED RELATED TO LIFE VEST. STAFF TO CONTACT JAMES AT [phone] PRIOR TO DISCHARGE FOR FITTING. JAMES WILL RE CHECK TOMORROW.
--- NOTE | 2025-07-04 19:59 | NUR ---
NEW T-ORDER RECEIVED FROM THE ON-CALL HOSPITALIST: IBUPROFEN 600MG PO ONCE. ENTERED TO [employer], SEE EMAR. ON-CALL HOSPITALIST DR. KLINE.
--- NOTE | 2025-07-04 20:01 | NUR ---
SHIFT SUMMARY PT ADMITTED TO UNIT AT 1335. PT IS ICU TRANSFER, THIS RN GOT REPORT FROM TRAIN STATION AGENT. ON ARRIVAL PT UNSTEADY AND WOBBLY STOOD FROM WHEELCHAIR TO BED WITH 1 P ASSIST. THIS RN NOTICED R ARM MORE FLACCID, COULD BENEFIT FROM PT/OT ONCE PT LESS LETHARGIC. REPORTS NOT LIKE THAT BEFORE ADMISSION. PT ORIENTED TO UNIT/FALL PRECAUTIONS/CALL LIGHT, PT ADMITTED DUE TO CARDIAC ARREST. PT A&OX4, BUT LETHARGIC/DROWSEY/IMPULSIVE. PT SLOW TO SPEAK. TRAIN STATION AGENT REPORTED PT LETHARGIC FROM ADMINISTRATION OF IV ATIVAN THE NIGHT PRIOR. PT HAS RIB FX. PT REPORTS PAIN AT RIBS, PAIN MANAGED PER EMAR. INCENTIVE SPIROMETER AT BEDSIDE. CONT PULSE OX ON SPO2 IS 94% ON 1L OF O2 VIA N/C. PT REPORTS SOME SOB DUE TO RIB FX. PT REPORTS "COUGHING UP STUFF" SUCTION SET UP AT BEDSIDE. PT DRESSING C/D/I AT R RADIAL SITE AND R IJ. L HAND IV PULLED DUE TO NOT PATENT. TRAIN STATION AGENT REPORTED MOREL PULLED AN HOUR BEFORE PT ARRIVED ON MEDICAL FLOOR, PT VOIDING SINCE ARRIVAL. PT NOT EATING ADEQUATE. Q6 INSULIN D/C'D. PLAN IS FOR OUTPATIENT PERMANENT DEFIB PER TRAIN STATION AGENT. TRAIN STATION AGENT REPORTED PT WILL D/C ON LIFE VEST. LIFE [facility] CALLED THIS RN AND SPOKE WITH DIRECT OF REAL ESTATE BRYANNA. BRYANNA REPORTED "[facility] WILL CALL TOMORROW FOR UPDATE ON D/C, WILL SIZE ONCE PT LESS LETHARGIC. PT IN BED, BED IN LOWEST POSITION, LOCKED, CALL LIGHT IN REACH. AT BEDSIDE, EARLIER TODAY REQUESTED PT HAS 4 SIDE RAILS UP DUE TO IMPULSIVITY, THIS RN EDUCATED ON SIDE RAIL AND RESTRAINT PROTOCAL AND USE. DIRECT OF REAL ESTATE NOTIFIED. PUT UP 4 RAILS. DIRECT OF REAL ESTATE DISCUSED WITH , BED ALARM ON, 3 SIDE RAILS REMAIN UP.
--- NOTE | 2025-07-04 20:42 | NUR ---
PT'S HS BP 172/91, P. 72. THIS CHOP SAW OPERATOR CONTACTED THE ON-CALL HOSPITALIST DR. KLINE. PER CONVERSTATION, WILL TAKE A LOOK AT THE CHART AND ORDER SOMETHING/MEDICATION FOR HTN.
--- NOTE | 2025-07-05 03:24 | NUR ---
SHIFT SUMMARY PT IS A/O X3-4, COOPERATIVE WITH CARE AND ABLE TO MAKE HIS NEEDS KNOWN. COMPLETE BED BATH AND LINEN CHANGE PER 'S REQUEST AT HS. PT IS UNCOMFORTABLE, REPORTS PAIN AROUND TORSO, RIBS AND SOB WHEN MOVING IN BED. O2 AT 3L DURING NIGHT HRS, CONTINOUS PULSE OXIMETER LOW 90'S O2 SATURATIONS. AT HS, ELEVATED BP: ONE TIME ORDER OF [place]AN RECEIVED FROM THE ON-CALL HOSPITALIST. ADMINSTERED ORDERED. PT IS VOIDING WELL, POOR PO INTAKE, ICE CREAM PROVIDED. BY THE BEDSIDE. TELE SHOWING SR IN 70-80'S WITH BBB. PT DENIES CP OTHER THAN PAIN FROM RIB FX'S FROM THE CPR. PAIN MANAGED WITH PRN NORCO 5/325 Q6 PO. NOT EFFECTIVE AT HS. PATIENT REPORTS 9/10 LEVEL OF PAIN. ONE TIME ORDER OF IBUPROFEIN 600MG PO RECEIVED FROM THE ON-CALL HOSPITALIST. PT REPORTS MILDLY EFFECTIVE. BED AT THE LOWEST POSITION, CALL LIGHT W/I REACH. THREE RAILS UP PER PT REQUEST. PT SLOW TO MOVE IN BED, APPEARS IN PAIN WHEN MOANING DURING MOVEMENT. CONTINUING PT EDUCATION AND ENCOURAGED AND EDUCATED ON INCENTIVE SPIROMETER.
[2025-07-05 04:15] VITALS: BP 137/78
[2025-07-05] MEDS ORDERED: Ketorolac Tromethamine 15mg Vial IV PRN (04:25)
--- NOTE | 2025-07-05 04:25 | NUR ---
NEW T-ORDER FROM ON-CALL HOSPITALIST : IV TORADOL 15MG Q6HRS PRN MAX 4 DOSES. ENTERED TO [place],SEE EMAR.
[2025-07-05 07:09] VITALS: BP 145/73
[2025-07-05 09:42] LABS: Anion Gap 7.0 mmol/L (3-11); Blood Urea Nitrogen 8.0 mg/dL (8-24); CO2, Blood 30.0 mmol/L (21-32); Calcium, Blood 9.0 mg/dL (8.5-10.1); Chloride, Blood 102.0 mmol/L (98-108); Creatinine, Blood 0.94 mg/dL (0.60-1.20); Glucose, Blood 143.0 mg/dL (70-99); Magnesium, Blood 1.8 mg/dL (1.6-2.4); Potassium, Blood 3.8 mmol/L (3.5-5.5); Sodium, Blood 135.0 mmol/L (136-145)
[2025-07-05 11:35] VITALS: BP 148/94
[2025-07-05] MEDS ORDERED: HYDROcodone 5-APAP 325 TAB PO PRN (13:00)
--- NOTE | 2025-07-05 14:32 | NUR ---
pt laying in bed states he's very painful in ribs with movement, at bedside, a/ox4, pleasant and cooperative with care, follows commands well, will medicate per mar, lungs are clear in upper herring, dim in bases, on r/a, resp even and unlabored, no cough noted, but reports a productive cough of brown sputum, hrr, no edema noted, ppp+1, cap refill<3 sec, vs stable, afebrile, piv to rac and power glide to jovan sites are clear and patent, but power glide wont draw, and is leaking, btx4, abd flat soft nontender, voids without diff, skin c/w/d, irma, hasn't been oob yet, therapy will work with him, pilar, call light in reach.
[2025-07-05 16:24] VITALS: BP 146/84
[2025-07-05] MEDS ORDERED: AMIODARONE HCL200 MG PO (16:34)
[2025-07-05] MEDS ORDERED: DOCU100 PO (16:34)
[2025-07-05] MEDS ORDERED: Norco 5-325 Ta1 EACH PO (16:35)
[2025-07-05] MEDS ORDERED: JARDIANCE10 MG PO (17:11)
--- NOTE | 2025-07-05 18:09 | NUR ---
pt worked with therapy today, ambulated out in curry, has been painful, otherwise uneventful day, has actually been discharged to home after life vest is placed, but do to not driving in the dark will stay until morning, call light in reach.
[2025-07-05 19:42] VITALS: BP 158/91
[2025-07-06 00:23] VITALS: BP 157/84
[2025-07-06 04:06] VITALS: BP 148/84
--- NOTE | 2025-07-06 05:34 | NUR ---
SHIFT SUMMARY NO ACUTE CHANGES OVERNIGHT. PT SATURATING >=94% ON RA. SPLINTING RESPIRATIONS D/T BROKEN RIBS/STERNUM. MEDICATED FOR PAIN PER EMAR. PT HAS [facility] AT BEDSIDE TO PLACE AT TIME OF DISCHARGE. TELE: SR, BBB, RATE OF 71 BPM. LEAKING PG IN EDUARDO IS REMOVED, DRESSINGS CHANGED TO R IJ, R WRIST, AND EDUARDO. EDUCATED FURTHER ON BENEFITS OF TOBACCO AND ETOH CESSATION WITH PT AND . PT HAS QUESTION FOR IN AM REGARDING TOES OF R FOOT INTERMITTENTLY DISCOLORED/COOL. AMBULATING WELL WITH FWW AND SBA. A&OX4.
[2025-07-06 07:22] VITALS: BP 161/82
--- NOTE | 2025-07-06 10:58 | NUR ---
PT DISCHARGED AT 1045 WITH TO TRANSPORT. PT HAD PAPERWORK REVIEWED AND EDUCATIONAL MATERIAL SENT WITH PT. EDUCATION GIVEN ON USE OF LIFE VEST AND TO CONTACT [facility] PHONE NUMBER IF THEY HAVE ANY PROBLEMS AT HOME. PT TREATED FOR CONTINUED CHEST PAIN PER EMAR. NO DISTRESS NOTED AND PT AND WERE ESCORTED OUT TO N ENTRANCE VIA WHEEL CHAIR.
== END 2025-07-06 11:05 | disposition home health service (06) | DRG 286 ==
LOC: ER 20:58 → MEDS 22:49 → ICUE 22:49 → MEDS 07-04 13:27 → ENPENDDIS 07-06 00:01 → MEDS 07-06 11:05
PROVIDERS: Internal Medicine; Internal Medicine Critical Care Medicine; Student in an Organized Health Care Education/Training Program; ADMIT Student in an Organized Health Care Education/Training Program
PROC: 0BH17EZ Insertion of Endotracheal Airway into Trachea, Via Natural or Artificial Opening (ICD-10-PCS; 2025-07-01)
PROC: 5A1945Z Respiratory Ventilation, 24-96 Consecutive Hours (ICD-10-PCS; 2025-07-01)
PROC: 3E03329 Introduction of Other Anti-infective into Peripheral Vein, Percutaneous Approach (ICD-10-PCS; 2025-07-01)
PROC: 4A023N7 Measurement of Cardiac Sampling and Pressure, Left Heart, Percutaneous Approach (ICD-10-PCS; principal; 2025-07-02)
PROC: B2111ZZ Fluoroscopy of Multiple Coronary Arteries using Low Osmolar Contrast (ICD-10-PCS; 2025-07-02)
PROC: 02HV33Z Insertion of Infusion Device into Superior Vena Cava, Percutaneous Approach (ICD-10-PCS; 2025-07-02)
PROC: 0T9B70Z Drainage of Bladder with Drainage Device, Via Natural or Artificial Opening (ICD-10-PCS; 2025-07-02)
PROC: 3E043XZ Introduction of Vasopressor into Central Vein, Percutaneous Approach (ICD-10-PCS; 2025-07-02)
DX: I49.01 Ventricular fibrillation (principal); G93.41 Metabolic encephalopathy; J69.0 Pneumonitis due to inhalation of food and vomit; J96.01 Acute respiratory failure with hypoxia; I50.42 Chronic combined systolic (congestive) and diastolic (congestive) heart failure; E87.21 Acute metabolic acidosis; N17.9 Acute kidney failure, unspecified; M96.A3 Multiple fractures of ribs associated with chest compression and cardiopulmonary resuscitation; M96.A1 Fracture of sternum associated with chest compression and cardiopulmonary resuscitation; I46.2 Cardiac arrest due to underlying cardiac condition; I25.10 Atherosclerotic heart disease of native coronary artery without angina pectoris; I11.0 Hypertensive heart disease with heart failure; E03.9 Hypothyroidism, unspecified; E78.1 Pure hyperglyceridemia; F10.20 Alcohol dependence, uncomplicated; F17.210 Nicotine dependence, cigarettes, uncomplicated; E11.65 Type 2 diabetes mellitus with hyperglycemia; E83.39 Other disorders of phosphorus metabolism; E83.42 Hypomagnesemia; I25.82 Chronic total occlusion of coronary artery; I25.5 Ischemic cardiomyopathy; I25.2 Old myocardial infarction; Z95.5 Presence of coronary angioplasty implant and graft; Z71.6 Tobacco abuse counseling; Z88.8 Allergy status to other drugs, medicaments and biological substances; Z79.82 Long term (current) use of aspirin; Z79.02 Long term (current) use of antithrombotics/antiplatelets; Z79.51 Long term (current) use of inhaled steroids; Z78.1 Physical restraint status
CPT/HCPCS: 36415; 36556; 36600; 51702; 70450; 71045; 71260; 72125; 74177; 76937; 80048; 80053; 81001; 82330; 82803; 82947; 83036; 83605; 83690; 83735; 83880; 84100; 84132; 84439; 84443; 84484; 85014; 85018; 85025; 85049; 85520; 85610; 85730; 87070; 87086; 87205; 87637; 93005; 93010; 93306; 93458; 94002; 94003; 94640; 94664; 94762; 96361-59; 96365-59; 97116; 97162; 97165; 97530; 97535; 99152; 99153; 99285-25; A9270; C1751; C1769; C1887; C1894; J0282; J0696; J1644; J1885; J2060; J2250; J2371; J2470; J2704; J3010; J3411; J7030; J7040; J7050; J7120; Q9967

== ENCOUNTER 2025-07-09 21:35 | Emergency (ER) | payer BC, OTHER ==
[~2025-07-09] VITALS: Ht 172.7 cm; Wt 78.5 kg
[~2025-07-09 21:35] MED LIST changes: +AMIODARONE HCL200 MG PO; +DOCU100 PO; +JARDIANCE10 MG PO; +Norco 5-325 Ta1 EACH PO
[2025-07-09 23:24] LABS: BASOPHILS ABSOLUTE AUTO 0.07 K/mm3 (0.00-0.23); BASOPHILS PERCENT AUTO 1 % (0-2); EOSINOPHILS ABSOLUTE AUTO 0.31 K/mm3 (0.00-0.68); EOSINOPHILS PERCENT AUTO 4 % (0-6); Hematocrit 39.4 % (37.0-53.0); Hemoglobin 13.3 g/dL (13.5-17.5); IMMATURE GRAN ABSOLUTE AUTO 0.08 K/mm3 (0.00-0.10); IMMATURE GRAN PERCENT AUTO 1 % (0-1); LYMPHOCYTES ABSOLUTE AUTO 1.65 K/mm3 (0.84-5.20); LYMPHOCYTES PERCENT AUTO 23 % (21-46); MONOCYTES ABSOLUTE AUTO 0.73 K/mm3 (0.16-1.47); MONOCYTES PERCENT AUTO 10 % (4-13); Mean Corpuscular HGB Conc 33.8 g/dL (31.5-36.5); Mean Corpuscular Volume 89 fL (80-100); NEUTROPHILS ABSOLUTE AUTO 4.36 K/mm3 (1.96-9.15); NEUTROPHILS PERCENT AUTO 61 % (41-73); NRBC ABSOLUTE 0.00 K/mm3 (0.00-0.02); NRBC Auto 0.0 /100 WBC (0.0-0.2); Platelet Count 218 K/mm3 (150-400); RDW Coefficient Variation 13.4 % (11.7-14.2); RDW Standard Deviation 43.9 fL (35.1-46.3)
[2025-07-09 23:36] LABS: Alanine Aminotransfer (ALT/SGP 153.0 U/L (12-78); Albumin, Blood 3.9 g/dL (3.4-5.0); Albumin/Globulin Ratio 1.1 (0.8-1.8); Anion Gap 9.0 mmol/L (3-11); Aspartate Aminotrans (AST/SGOT 68.0 U/L (12-37); Bilirubin, Total 0.3 mg/dL (0.1-1.0); Blood Urea Nitrogen 26.0 mg/dL (8-24); CO2, Blood 26.0 mmol/L (21-32); Calcium, Blood 9.1 mg/dL (8.5-10.1); Chloride, Blood 101.0 mmol/L (98-108); Creatinine, Blood 1.08 mg/dL (0.60-1.20); Globulin, Blood 3.7 g/dL (2.2-4.0); Glucose, Blood 110.0 mg/dL (70-99); Potassium, Blood 4.4 mmol/L (3.5-5.5); Sodium, Blood 132.0 mmol/L (136-145); Total Protein, Blood 7.6 g/dL (6.4-8.2)
[2025-07-10 01:15] VITALS: BP 148/87
[2025-07-10] MEDS ORDERED: AMOCLA875 PO (01:18)
[2025-07-10] MEDS ORDERED: AZIT250 PO (01:18)
== END 2025-07-10 01:25 | disposition home or self-care (01) ==
LOC: ER 21:35
PROVIDERS: Emergency Medicine
DX: J18.9 Pneumonia, unspecified organism (principal); I10 Essential (primary) hypertension; E78.5 Hyperlipidemia, unspecified; F17.210 Nicotine dependence, cigarettes, uncomplicated; Z79.02 Long term (current) use of antithrombotics/antiplatelets; Z79.899 Other long term (current) drug therapy; Z88.8 Allergy status to other drugs, medicaments and biological substances
CPT/HCPCS: 71045; 80053; 84484; 85025; 93005; 93010; 99284-25; A9270